=== PATIENT | female | born 2005 ===

== ENCOUNTER 2025-11-13 18:22 | Inpatient (IN) | payer MEDICAID, OTHER ==
[~2025-11-13] VITALS: Ht 162.6 cm; Wt 49.7 kg
[2025-11-13 18:40] VITALS: PULSE 117; RESP 16; O2SAT 99
[2025-11-13] MEDS: SODIUM CHLORIDE 0.9% 1,000 ML IV ONE (18:48)
--- NOTE | 2025-11-13 19:15 | ED.PDOC ---
History of Present Illness HPI Comments 20-year-old female who came to ER for syncope. Patient was at home having dinner when she felt dizzy and she has a syncopal attack, hitting her head on the table as she fell down. Patient's states she had a syncopal episode 4 years ago. Patient currently complaining of headaches and body pains. States she recently had a miscarriage a week ago. No active bleeding at this time of care REVIEW OF SYSTEMS: General: No fever, no chills, or fatigue HEENT: No sore throat, no earache, no congestion, no neck pain. Cardiac: No chest pain. No palpitations. (+) syncope Lungs: No shortness of breath, no cough. GI: No nausea, no vomiting, no diarrhea, no constipation, no abdominal pain : No dysuria, frequency, or urgency. No hematuria. Musculoskeletal: No joint pain , no joint swelling, no extremity edema. Skin: No rash, no itching. Neuro: (+) headache, (+) dizziness, (+) fainting, no weakness EXAM: General: Awake, alert and oriented. No acute distress. Skin: Skin in warm, dry and intact. Appropriate color for ethnicity. HEENT: The head is normocephalic and atraumatic. Conjunctivae are clear without exudates or hemorrhage. Sclera is non-icteric. EOM are intact. No signs of nystagmus. Eyelids are normal in appearance without swelling or lesions. Oral mucosa is pink and moist Neck: The neck is supple with normal range of motion. No JVD. Cardiac: Heart rate and rhythm are normal. No murmurs, gallops, or rubs are auscultated. Respiratory: No signs of respiratory distress. Lung sounds are clear in all lobes bilaterally without rales, rhonchi, or wheezes. Abdominal: Abdomen is soft, non-tender without distention. Bowel sounds are present and normoactive in all four quadrants. Extremities: Upper and lower extremities are atraumatic in appearance without deformity or edema. Neurological: The patient is awake, alert and oriented to person, place, and time with normal speech. Speech is clear. There is no facial asymmetry. Psychiatric: Appropriate mood and affect. Good judgement and insight Chief Complaint: Syncope Time Seen by MD: 19:15 Reviewed Notes: Nurses Notes Allergies: Coded Allergies: No Known Drug Allergy (Verified Allergy, Unknown, 11/14/25) Home Meds No Active Prescriptions or Reported Meds Information Source: Patient Mode of Arrival: EMS Past Medical History PAST MEDICAL HISTORY: Denies Surgical History: Denies all surgeries BLOW TORCH OPERATOR History: Denies all BLOW TORCH OPERATOR Hx Family History Family History: Reviewed,noncontributory to illness Social History Smoker: Non-Smoker Alcohol: Denies ETOH Use Drugs: Denies Drug Use Lives In: Home Was a procedure done? Was a procedure done?: No Differential Dx Considerations may include: Differential diagnoses considered include but are not limited to cardiac structural disease, arrhythmia, acute coronary syndrome, orthostasis, pulmonary embolism, dissection, seizure, basilar stroke, other. X-Ray, Labs, Meds, VS Vital Signs Date Time Temp Pulse Resp B/P (MAP) Pulse Ox O2 Delivery O2 Flow Rate FiO2 11/13/25 21:30 103 16 92/54 (67) 98 11/13/25 19:30 95 19 96 Room Air* 0 21 11/13/25 19:30 95 19 90/57 (68) 96 11/13/25 19:10 104 16 88/54 (65) 98 11/13/25 18:49 111 11/13/25 18:40 117 16 89/57 (68) 99 11/13/25 18:40 117 16 99 Room Air* 0 21 11/13/25 18:34 97.8 116 18 84/54 96 97.8 Lab Test 11/13/25 22:08 11/13/25 19:49 11/13/25 18:46 Range/Units Urine Color Colorless Yellow Urine Clarity Turbid H Clear Urine pH 6.5 5.0-9.0 Urine Specific [place] 1.012 1.001-1.035 Urine Protein Negative Negative Urine Ketones Trace Negative Urine Blood 2+ H Negative /uL Urine Nitrite Negative Negative Urine Bilirubin Negative Negative Urine Urobilinogen Normal Negative mg/dL Urine Leukocyte Esterase 3+ Negative /uL Urine RBC 31 0 - 4 /hpf Urine WBC Clumps Present None Seen /hpf Urine Microscopic WBC 170 H 0-5 /HPF Urine Squamous Epithelial Cells Mod <5 /hpf Urine Bacteria Few H None Seen /hpf Urine Hyaline Casts Few 0 - 2 /lpf Urine Mucus Few None Seen Urine Glucose Normal Normal mg/dL Urine Test See comment A Negative Troponin I High Sensitivity < 3 L < 3 L </=34 ng/L White Blood Count 9.7 4.4-10.8 10^3/uL Red Blood Count 4.53 4.0-5.20 10^6/uL Hemoglobin 11.4 L 12.2-16.2 g/dL Hematocrit 34.8 L 36.0-46.0 % Mean Corpuscular Volume 76.8 L 80.0-100.0 fL Mean Corpuscular Hemoglobin 25.2 L 28.0-32.0 pg Mean Corpuscular Hemoglobin Concent 32.8 32.0-36.0 g/dL Red Cell Distribution Width 18.4 H 11.8-14.3 % Platelet Count 381 140-450 10^3/uL Mean Platelet Volume 8.7 6.9-10.8 fL Neutrophils (%) (Auto) 74.9 37.0-80.0 % Lymphocytes (%) (Auto) 14.2 10.0-50.0 % Monocytes (%) (Auto) 8.1 0.0-12.0 % Eosinophils (%) (Auto) 2.3 0.0-7.0 % Basophils (%) (Auto) 0.5 0.0-2.0 % Neutrophils # (Auto) 7.3 1.6-8.6 10 ^3/uL Lymphocytes # (Auto) 1.4 0.4-5.4 10 ^3/uL Monocytes # (Auto) 0.8 0-1.3 10 ^3/uL Eosinophils # (Auto) 0.2 0-0.8 10 ^3/uL Basophils # (Auto) 0 0-0.2 10 ^3/uL Nucleated Red Blood Cells 0.0 % Sodium Level 141 136-145 mmol/L Potassium Level 3.1 L 3.5-5.1 mmol/L Chloride Level 104 98-107 mmol/L Carbon Dioxide Level 23 20-31 mmol/L Anion Gap 14 5-15 Blood Urea Nitrogen 5 L 9-23 mg/dL Creatinine 0.81 0.550-1.02 mg/dL Glomerular Filtration Rate Calc 106 >90 mL/min BUN/Creatinine Ratio 6.2 L 10.0-20.0 Serum Glucose 91 74-106 mg/dL Calcium Level 9.3 8.7-10.4 mg/dL B-Type Natriuretic Peptide 6.87 0-100 pg/mL Time of 1ST Reevaluation: 19:10 Reevaluation 1ST: Unchanged Patient Education/Counseling: Need For Follow Up Family Education/Counseling: No Family Present SEPSIS Sepsis Screen Date sepsis recognized/suspect: Nov 13, 2025 Time Sepsis recognized/suspect: 1829 Recent Procedure: No On Antibiotic Therapy: No Respiratory Rate >20: No Heart Rate >90: No Temp<36 C (96.8 F) or >38.3 C: No SBP <90 or MAP <65 mmHG: No New Acute Mental Status Change: No Is the patient on CPAP, BIPAP,: No Physician Orders Electrocardigram (11/13/25 18:38) Elevator Operator Freight (11/13/25 ) Orthostatic Vital Signs (11/13/25 ) Saline Lock (11/13/25 18:38) Fall Precautions Initiated (11/13/25 18:38) Electrocardigram (11/13/25 19:38) Electrocardigram (11/13/25 21:38) Ambulate (11/13/25 18:59) Vital Signs Date Time Temp Pulse Resp B/P (MAP) Pulse Ox O2 Delivery O2 Flow Rate FiO2 11/13/25 21:30 103 16 92/54 (67) 98 11/13/25 19:30 95 19 96 Room Air* 0 21 11/13/25 19:30 95 19 90/57 (68) 96 11/13/25 19:10 104 16 88/54 (65) 98 11/13/25 18:49 111 11/13/25 18:40 117 16 89/57 (68) 99 11/13/25 18:40 117 16 99 Room Air* 0 21 11/13/25 18:34 97.8 116 18 84/54 96 97.8 Laboratory Tests Test 11/13/25 18:46 White Blood Count 9.7 10^3/uL (4.4-10.8) Departure 1 Departure Time of Disposition: 21:20 Impression: Primary Impression: Syncope Additional Impressions: Hypotension Tachycardia Disposition: ADMITTED INPATIENT Condition: Stable e-Prescriptions No Active Prescriptions or Reported Meds Comments 20-year-old female with syncopal episode. The patient remains persistently tachycardic with hypotension after treatment in the ED. Additional IV fluids ordered. Potassium ordered. Admit dispo Critical Care Note Critical Care Time?: No Stability Stability form required: No Heart Score Heart Score: Heart Score Response (Comments) Value History N/A 0 EKG N/A 0 Age N/A 0 Risk Factors N/A 0 Troponin N/A 0 Total 0 I personally scribed for DONNA ORDOÑEZ MD ([email or web address]) on 11/13/25 at 19:15. Electronically submitted by Korey Perkins ([facility]). DONNA ORDOÑEZ MD Nov 13, 2025 19:15
[2025-11-13 19:20] LABS: Hematocrit 34.8 % (36.0-46.0); Hemoglobin 11.4 g/dL (12.2-16.2); Mean Corpuscular Hemoglobin 25.2 pg (28.0-32.0); Mean Corpuscular Volume 76.8 fL (80.0-100.0); Nucleated Red Blood Cells % 0.0 %
[2025-11-13 19:23] LABS: Chloride 104 mmol/L (98-107); Sodium 141 mmol/L (136-145)
[2025-11-13 19:24] LABS: Anion Gap 14 (5-15); Calcium 9.3 mg/dL (8.7-10.4); Carbon Dioxide 23 mmol/L (20-31)
[2025-11-13 19:26] LABS: Potassium 3.1 mmol/L (3.5-5.1)
[2025-11-13 19:29] LABS: BUN/Creatinine Ratio 6.2 (10.0-20.0); Glucose 91 mg/dL (74-106)
[2025-11-13 19:30] VITALS: PULSE 95; RESP 19; O2SAT 96
[2025-11-13 19:32] LABS: Blood Urea Nitrogen 5 mg/dL (9-23)
[2025-11-13 22:35] LABS: Urine Protein, UAD Negative (Negative); Urine WBC Clumps PRESENT /hpf (None Seen)
--- NOTE | 2025-11-13 22:44 | DVHHP2 ---
History of Present Illness Reason for Visit: Syncope History of Present Illness The patient is a 20-year-old female who denies past medical history presented to [facility] ED for evaluation of syncopal episode. Patient reports that she had 1 weeks ago and bled heavily for about 1 week, awaiting for appointment on November 19, 2025. Mother reports that patient was at home having dinner when she felt dizzy, had syncopal attack, hitting her head on the table as she fell down. Patient currently complaining of headaches and body pains. Patient was seen and evaluated in the ED, laboratory data shows WBC 9.7, hemoglobin 11.4, hematocrit 34.8, platelets 381, sodium 141, potassium 3.1, BUN 5, creatinine 0.81, GFR 106, glucose 91, calcium 9.3, BNP 6.57, troponin < 3, blood pressure 93/58, heart rate 117 trending down to 92, temperature 97.8 F, O2 saturation 99% on room air. Please see medication orders section in the computer. On my assessment, mother at bedside, patient denied chest pain, no dizziness, diaphoresis, shortness of breaths, no abdominal pain, diarrhea, na usea, vomiting, fever, no chills. Patient was admitted for further evaluation and medical management. Past Medical History Denies past medical history Past Surgical History Denies all surgeries Family History Reviewed, noncontributory to the management of this case. Past Social History The patient lives at home, denies smoking, alcohol or illicit drugs abuse. Review of Systems Constitutional: Yes: Weakness; No: Fever, Chills, Sweats, Malaise, Other Eyes: No: Pain, Vision change, Conjunctivae inflammation, Eyelid inflammation, Other, Redness ENT: No: Ear pain, Ear discharge, Nose pain, Nose discharge, Nose congestion, Mouth pain, Mouth swelling, Throat pain, Throat swelling, Other Respiratory: No: Cough, Dry, Shortness of breath, SOB with excertion, Wheezing, Hemoptysis, Pleuritic Pain, Sputum, Wheezing, Other Cardiovascular: No: Chest Pain, Palpitations, Orthopnea, Paroxysmal Noc. Dyspnea, Edema, Lt Headedness, Other Gastrointestinal: No: Nausea, Vomiting, Abdominal Pain, Diarrhea, Constipation, Melena, Hematochezia, Other Genitourinary: No Dysuria, No Frequency, No Incontinence, No Hematuria, No Retention, No Other Musculoskeletal: No: other, neck pain, shoulder pain, arm pain, back pain, hand pain, leg pain, foot pain Skin: No: Rash, Lesions, Jaundice, Bruising, Other Neurological: Other (Dizziness); No: Weakness, Numbness, Incoordination, Change in speech, Confusion, Seizures Allergies: Coded Allergies: No Known Drug Allergy (Verified Allergy, Unknown, 11/14/25) Exam Vital Signs Vital Signs Date Time Temp Pulse Resp B/P (MAP) Pulse Ox O2 Delivery O2 Flow Rate FiO2 11/13/25 18:40 117 16 89/57 (68) 99 11/13/25 18:40 Room Air* 0 21 11/13/25 18:34 97.8 97.8 General Appearance: Alert, Oriented X3, Cooperative, No acute distress HEENT: Atraumatic, PERRLA, EOMI, Mucous membr. moist/pink Respiratory: Clear to auscultation, Normal air movement Cardiovascular: Regular rate, Normal S1, Normal S2, No murmurs Abdominal: Normal bowel sounds, Soft, No tenderness, No hepatospenomegaly, No masses Extremities: No clubbing, No cyanosis, No edema, Normal pulses, No tenderne ss/swelling Skin: No rashes, No breakdown, No significant lesion Neuro: Normal speech, Normal tone, Sensation intact, Cranial nerves 3-12 NL, Reflexes 2+, Other (Generalized weakness) Psych/Mental Status: Mental status NL, Mood NL Labs/Xrays Labs Test 11/13/25 22:08 11/13/25 19:49 11/13/25 18:46 Range/Units Urine Color Colorless Yellow Urine Clarity Turbid H Clear Urine pH 6.5 5.0-9.0 Urine Specific [place] 1.012 1.001-1.035 Urine Protein Negative Negative Urine Ketones Trace Negative Urine Blood 2+ H Negative /uL Urine Nitrite Negative Negative Urine Bilirubin Negative Negative Urine Urobilinogen Normal Negative mg/dL Urine Leukocyte Esterase 3+ Negative /uL Urine RBC 31 0 - 4 /hpf Urine WBC Clumps Present None Seen /hpf Urine Microscopic WBC 170 H 0-5 /HPF Urine Squamous Epithelial Cells Mod <5 /hpf Urine Bacteria Few H None Seen /hpf Urine Hyaline Casts Few 0 - 2 /lpf Urine Mucus Few None Seen Urine Glucose Normal Normal mg/dL Troponin I High Sensitivity < 3 L </=34 ng/L White Blood Count 9.7 4.4-10.8 10^3/uL Red Blood Count 4.53 4.0-5.20 10^6/uL Hemoglobin 11.4 L 12.2-16.2 g/dL Hematocrit 34.8 L 36.0-46.0 % Mean Corpuscular Volume 76.8 L 80.0-100.0 fL Mean Corpuscular Hemoglobin 25.2 L 28.0-32.0 pg Mean Corpuscular Hemoglobin Concent 32.8 32.0-36.0 g/dL Red Cell Distribution Width 18.4 H 11.8-14.3 % Platelet Count 381 140-450 10^3/uL Mean Platelet Volume 8.7 6.9-10.8 fL Neutrophils (%) (Auto) 74.9 37.0-80.0 % Lymphocytes (%) (Auto) 14.2 10.0-50.0 % Monocytes (%) (Auto) 8.1 0.0-12.0 % Eosinophils (%) (Auto) 2.3 0.0-7.0 % Basophils (%) (Auto) 0.5 0.0-2.0 % Neutrophils # (Auto) 7.3 1.6-8.6 10 ^3/uL Lymphocytes # (Auto) 1.4 0.4-5.4 10 ^3/uL Monocytes # (Auto) 0.8 0-1.3 10 ^3/uL Eosinophils # (Auto) 0.2 0-0.8 10 ^3/uL Basophils # (Auto) 0 0-0.2 10 ^3/uL Nucleated Red Blood Cells 0.0 % Sodium Level 141 136-145 mmol/L Potassium Level 3.1 L 3.5-5.1 mmol/L Chloride Level 104 98-107 mmol/L Carbon Dioxide Level 23 20-31 mmol/L Anion Gap 14 5-15 Blood Urea Nitrogen 5 L 9-23 mg/dL Creatinine 0.81 0.550-1.02 mg/dL Glomerular Filtration Rate Calc 106 >90 mL/min BUN/Creatinine Ratio 6.2 L 10.0-20.0 Serum Glucose 91 74-106 mg/dL Calcium Level 9.3 8.7-10.4 mg/dL B-Type Natriuretic Peptide 6.87 0-100 pg/mL SEPSIS Sepsis Screen Date sepsis recognized/suspect: Nov 13, 2025 Time Sepsis recognized/suspect: 1839 Recent Procedure: No On Antibiotic Therapy: No Respiratory Rate >20: No Heart Rate >90: No Temp<36 C (96.8 F) or >38.3 C: No SBP <90 or MAP <65 mmHG: No New Acute Mental Status Change: No Is the patient on CPAP, BIPAP,: No Physician Orders Electrocardigram (11/13/25 18:38) Mold Maintenance Technician (11/13/25 ) Orthostatic Vital Signs (11/13/25 ) Saline Lock (11/13/25 18:38) Fall Precautions Initiated (11/13/25 18:38) Electrocardigram (11/13/25 19:38) Electrocardigram (11/13/25 21:38) Ambulate (11/13/25 18:59) Test, Urine (11/13/25 21:15) Potassium Effervesent Tab (Klor-Con/Ef) (11/13/25 21:15) D5w/ Sod Chl 0.9%/Kcl 20meq (11/13/25 21:15) Admit (11/13/25 22:40) Allergies (11/13/25 22:40) Code Status (11/13/25 22:40) Sodium Chloride Lock (Saline Lock Ns) (11/14/25 06:00) Vital Signs Date Time Temp Pulse Resp B/P (MAP) Pulse Ox O2 Delivery O2 Flow Rate FiO2 11/13/25 18:40 117 16 89/57 (68) 99 11/13/25 18:40 117 16 99 Room Air* 0 21 11/13/25 18:34 97.8 116 18 84/54 96 97.8 Laboratory Tests Test 11/13/25 18:46 White Blood Count 9.7 10^3/uL (4.4-10.8) Medications Medications Dose Ordered Sig/Tracy Route Start Time Stop Time Status Last Admin Dose Admin Sodium Chloride 1,000 ml @ 1,000 mls/hr Q1H ONCE IV 11/13/25 18:45 11/13/25 19:44 DC 11/13/25 18:48 1,000 MLS/HR Assessment/Plan Assessment/Plan Syncope Hypotension Tachycardia Generalized weakness Plan 1. Admit to telemetry unit 2. Breathing treatment 3. Pain control management 4. Management of fluids and electrolytes 5. Consultation for hospitalist 6. Diagnostic tests chest x-ray 7. DVT prophylaxis-on SCDs 8. Repeat labs CBC, CMP in a.m. 9. Continue with current medical management 10. Treatment plan discussed with patient/mother and RN. Patient/mother verbalized understanding. Plan discussed with: Patient, Other (RN) My Orders Orders - ABDOUL ZENG DNP Procedure Category Date Status Time Admit ADMIT 11/13/25 Verified 22:40 Allergies ANKITA 11/13/25 Verified 22:40 Code Status CODE 11/13/25 Verified 22:40 Sodium Chloride Lock PHA 11/14/25 Verified (Saline Lock Ns) 06:00 Problem List: (1) Syncope (2) Hypotension (3) Tachycardia (4) Generalized weakness Date of Service: Nov 13, 2025 Billing Provider: ABDOUL ZENG DNP Common Visit Codes: [id number] INP/OBS CARE (HIGH) ABDOUL ZENG DNP Nov 13, 2025 22:44
[2025-11-13] MEDS ORDERED: MORPHINE SULFATE INJ 2 MG/ml SYRG IV PRN (22:45)
[2025-11-13] MEDS ORDERED: ACETAMINOPHEN 325 MG TAB PO PRN (22:45)
[2025-11-13] MEDS ORDERED: NITROGLYCERIN 0.4 MG SL TAB SL PRN (22:45)
[2025-11-13] MEDS ORDERED: DOCUSATE SOD 100 MG CAP PO PRN (22:45)
[2025-11-13] MEDS ORDERED: HYDROcodone-ACET 5/325MG TAB PO PRN (22:45)
[2025-11-14] VITALS (10 sets, daily range): BP systolic 92–112; BP diastolic 51–75; PULSE 76–108; RESP 15–16; TEMP 97.1–99.6; O2SAT 97–99
[2025-11-14] MEDS: POTASSIUM EFFERVESENT TAB 25 MEQ PO ONE (02:09)
[2025-11-14] MEDS: D5W/ SOD CHL 0.9%/KCL 20MEQ 1,000 ML IV ONE (02:12)
[2025-11-14] MEDS: SODIUM CHLOR 0.9% PF (SALINE LOCK) 10ML VIAL/SYR IV SCH (06:00)
[2025-11-14 06:35] LABS: Hemoglobin 10.5 g/dL (12.2-16.2); Mean Corpuscular Hemoglobin 25.1 pg (28.0-32.0); Nucleated Red Blood Cells % 0.1 %
[2025-11-14 06:39] LABS: Hematocrit 32.1 % (36.0-46.0); Mean Corpuscular Volume 76.9 fL (80.0-100.0)
[2025-11-14 06:57] LABS: Alanine Aminotransferase 10 U/L (7-40); Albumin 4.2 g/dL (3.2-4.8); Alkaline Phosphatase 51 U/L (46-116); Anion Gap 9 (5-15); BUN/Creatinine Ratio 16.0 (10.0-20.0); Calcium 8.9 mg/dL (8.7-10.4); Carbon Dioxide 25 mmol/L (20-31); Chloride 105 mmol/L (98-107); Glucose 91 mg/dL (74-106); Potassium 4.2 mmol/L (3.5-5.1); Sodium 139 mmol/L (136-145); Total Protein 6.7 g/dL (5.7-8.2)
[2025-11-14 07:06] LABS: Bilirubin, Total 0.3 mg/dL (0.2-1.0)
[2025-11-14 07:07] LABS: Blood Urea Nitrogen 8 mg/dL (9-23)
[2025-11-14] MEDS: ONDANSETRON HCL 4 MG/2 ML VIAL IV PRN (09:56)
--- NOTE | 2025-11-14 15:23 | DVHPN2 ---
Subjective Patient denies any symptoms at this time Reviewed: Care Plan, H&P, Labs, Medications Changes from previous H/P or p: No Changes General: Per HPI Eyes: No Pain, No Vision change, No Conjunctivae inflammation, No Eyelid inflammation, No Other, No Redness ENT: No Ear pain, No Ear discharge, No Nose pain, No Nose discharge, No Nose congestion, No Mouth pain, No Mouth swelling, No Throat pain, No Throat swelling, No Other Cardiovascular: No Chest Pain, No Palpitations, No Orthopnea, No Paroxysmal Noc. Dyspnea, No Edema, No Lt Headedness, No Other Respiratory: No Cough, No Dry, No Shortness of breath, No SOB with excertion, No Wheezing, No Hemoptysis, No Pleuritic Pain, No Sputum, No Other Gastrointestinal: No Nausea, No Vomiting, No Abdominal Pain, No Diarrhea, No Constipation, No Melena, No Hematochezia, No Other Genitourinary: No Dysuria, No Frequency, No Incontinence, No Hematuria, No Retention, No Other Musculoskeletal: No other, No neck pain, No shoulder pain, No arm pain, No back pain, No hand pain, No leg pain, No foot pain Skin: No Rash, No Lesions, No Jaundice, No Bruising, No Other Objective Vitals Vital Signs Date Time Temp Pulse Resp B/P (MAP) Pulse Ox O2 Delivery O2 Flow Rate FiO2 11/14/25 13:16 98.1 81 16 103/61 (75) 98 98.1 93 107/63 (78) 91 100/71 (81) 11/14/25 07:45 Room Air* 0 21 Intake/Output Intake and Output 11/14/25 07:00 Intake Total 200 ml Balance 200 ml Intake Oral 200 ml # Voids 1 General Appearance: Alert, Oriented X3, Cooperative, No acute distress HEENT: Atraumatic, PERRLA Lungs: Clear to auscultation, Normal air movement Cardiovascular: Normal S1, Normal S2 Musculoskeletal: Normal sensory function, Normal motor function Skin: Dry, Intact Psych/Mental Status: Mood NL Medications Current Medications Medications Dose Ordered Sig/Trayc Route Start Time Stop Time Status Last Admin Dose Admin Sodium Chloride 10 ml Q8HR IV 11/14/25 06:00 11/14/25 14:30 10 ML Acetaminophen/ Hydrocodone Bitart 1 tab Q4HP PRN PO 11/13/25 22:45 Ondansetron HCl 4 mg Q4HP PRN IV 11/13/25 22:45 11/14/25 09:56 4 MG Docusate Sodium 100 mg BIDPRN PRN PO 11/13/25 22:45 Acetaminophen 650 mg Q6HP PRN PO 11/13/25 22:45 Nitroglycerin 0.4 mg Q5MINP PRN SL 11/13/25 22:45 Morphine Sulfate 2 mg Q30M PRN IV 11/13/25 22:45 Laboratory Results Laboratory Tests 11/14/25 04:44 Chemistry Test 11/13/25 18:46 11/14/25 04:44 Calcium Level 9.3 mg/dL (8.7-10.4) 8.9 mg/dL (8.7-10.4) Albumin 4.2 g/dL (3.2-4.8) Total Protein 6.7 g/dL (5.7-8.2) Cardiac Markers Test 11/13/25 18:46 B-Type Natriuretic Peptide 6.87 pg/mL (0-100) LFT Test 11/14/25 04:44 Alanine Aminotransferase (ALT) 10 U/L (7-40) Alkaline Phosphatase 51 U/L (46-116) Aspartate Amino Transferase (AST) 15 U/L (13-40) Total Bilirubin 0.3 mg/dL (0.2-1.0) Urinalysis Test 11/13/25 22:08 Urine Color Colorless (Yellow) Urine Clarity Turbid (Clear) H Urine pH 6.5 (5.0-9.0) Urine Specific [place] 1.012 (1.001-1.035) Urine Protein Negative (Negative) Urine Ketones Trace (Negative) Urine Blood 2+ /uL (Negative) H Urine Nitrite Negative (Negative) Urine Bilirubin Negative (Negative) Urine Urobilinogen Normal mg/dL (Negative) Urine Leukocyte Esterase 3+ /uL (Negative) Urine RBC 31 /hpf (0 - 4) Urine WBC Clumps Present /hpf (None Seen) Urine Microscopic WBC 170 /HPF (0-5) H Urine Squamous Epithelial Cells Mod /hpf (<5) Urine Bacteria Few /hpf (None Seen) H Urine Hyaline Casts Few /lpf (0 - 2) Urine Mucus Few (None Seen) Urine Glucose Normal mg/dL (Normal) Urine Test See comment (Negative) A Labs and/or images reviewed: Labs reviewed by me, Image(s) reviewed by me Assessment/Plan Assessment/Plan Impression: -syncope -rule out incomplete spontaneous -anemia -rule out seizure activity Plan: -neurology consultation -start oral antibiotic therapy with Augmentin -check beta hCG -Ob ultrasound Total time spent with patient discussing and formulating plan of care: 35 minutes. This medical document was created using an electronic medical record system with [employer] dictation system. Although this document has been carefully reviewed, there may still be some phonetic and typographical errors. These areas are purely typographical due to imperfections of the software programs, and do not reflect any compromise in the patient's medical care. Plan discussed with: Patient, Other (Mother, RN) My Orders Orders - JEFERSON MUÑOZ NP Procedure Category Date Status Time Ob Ultrasound Comp US 11/14/25 Verified Less 14wks 15:19 Amoxicillin/Clavulanate PHA 11/14/25 Verified Tablet (Augmenti 22:00 Date of Service: Nov 14, 2025 Billing Provider: JEFERSON MUÑOZ NP Common Visit Codes: [id number] INP/OBS CARE(HIGH) JEFERSON MUÑOZ NP Nov 14, 2025 15:23
--- NOTE | 2025-11-14 18:23 | BSKYNEURO ---
[facility] Note # Demographics Consult Type: General Neurology Patient Location: Inpatient First Name: Zuri Last Name: Lulu Date of : 2005 Age: 20 Gender: Female Facility: [facility] Time of Initial Page (): 11/14/2025 17:12 First Contact with Site (): 11/14/2025 17:12 # HPI History: 20 y/o F who presented with syncope. Talking to mother. She had 5-10 seconds of jekring. Had episode like this before. Had spontaneous miscarriage. She is confused afterwards for a couple of hours # Scores Time of exam and NIHSS (): 11/14/2025 18:22 Level of Consciousness 1a: [0] = Alert; keenly responsive LOC Questions 1b: [0] = Answers both questions correctly LOC Commands 1c: [0] = Performs both tasks correctly Best Gaze 2: [0] = Normal Visual 3: [0] = No visual loss Facial Palsy 4: [0] = Normal symmetrical movements Motor Arm Left 5a: [0] = No drift Motor Arm Right 5b: [0] = No drift Motor Leg Left 6a: [0] = No drift Motor Leg Right 6b: [0] = No drift Limb Ataxia 7: [0] = Absent Sensory 8: [0] = Normal Best Language 9: [0] = No aphasia Dysarthria 10: [0] = Normal Extinction and Inattention 11: [0] = No abnormality NIHSS Total: 0 # Assessment Impression: - Other Convulsive syncope vs seizure. Duration is short but the post ictal period is concerning. Would start seizure meds and complete workup. # Plan Thrombolytic/Intervention: NOT IV Thrombolysis or IA Intervention candidate Thrombolytic/Intraarterial Exclusion: - IV thrombolytic and IA intervention considered but not recommended as this patient's symptoms are not clinically consistent with an assumed diagnosis of stroke Imaging: (urgency: routine): - MRI Brain with AND without contrast Diagnostic Test: - EEG Medication: -after MRI/EEG, would start keppra 500 mg BID Other: - If patient has any neurological deterioration please call me back immediately - I have discussed my recommendations with the referring provider Disposition: continue admission # Logistics Attestation of consult completion: The patient is located at: [facility]. Facility staff participated in the visit. I performed this telemedicine visit from my offsite office utilizing interactive 2 way audio and visual telecommunication technology at the request of the onsite inpatient provider. Consent: Verbal consent was obtained from the patient and/or family for this encounter. Total time spent in telemedicine encounter: I spent 20 minutes reviewing clinical data and/or imaging, obtaining history, examining the patient, communicating with the onsite care team, and in preparation of this report. # Demographics First Name: Zuri Last Name: Lawson Facility: [facility] Yes JAMAL MILES MD Nov 14, 2025 18:23
--- NOTE | 2025-11-14 19:40 | DVH ---
INDICATION: Spontaneous TECHNIQUE: Multiple real-time grayscale transabdominal sonographic images along with color and duplex Doppler of the uterus and ovaries were obtained. COMPARISON: None FINDINGS: The uterus measures 7.4 x 4.5 x 5.3 cm cm. The endometrial stripe measures 5.4 mm. The right ovary measures 2.36 x 2.2 x 3.2 cm. Right ovarian volume is 9 mL. There is a 1.4 x 1.5 x 1 cm anechoic lesion in the right ovary. The left ovary measures 4 x 2.3 x 3.1 cm. Volume of the left ovary is 15.3 mL there is an anechoic nodule in the left ovary measuring 1.9 x 1.1 x 1.4 cm. Subsequent color and duplex Doppler interrogation of the ovaries demonstrated symmetric vascular flow to both ovaries, though this does not exclude the possibility of torsion due to the dual blood supply. IMPRESSION: 1. Grossly unremarkable pelvic ultrasound. 2. No IUP present time. No findings to suggest retained products of conception. 3. An anechoic nodule in the right and left ovaries.
[2025-11-15] VITALS (9 sets, daily range): BP systolic 90–116; BP diastolic 55–78; PULSE 67–96; RESP 12–20; TEMP 97.8–98.3; O2SAT 96–99
--- NOTE | 2025-11-15 10:32 | DVHPN2 ---
Subjective Patient denies any symptoms at this time Reviewed: Care Plan, H&P, Labs, Medications Changes from previous H/P or p: No Changes General: Per HPI Eyes: No Pain, No Vision change, No Conjunctivae inflammation, No Eyelid inflammation, No Other, No Redness ENT: No Ear pain, No Ear discharge, No Nose pain, No Nose discharge, No Nose congestion, No Mouth pain, No Mouth swelling, No Throat pain, No Throat swelling, No Other Cardiovascular: No Chest Pain, No Palpitations, No Orthopnea, No Paroxysmal Noc. Dyspnea, No Edema, No Lt Headedness, No Other Respiratory: No Cough, No Dry, No Shortness of breath, No SOB with excertion, No Wheezing, No Hemoptysis, No Pleuritic Pain, No Sputum, No Other Gastrointestinal: No Nausea, No Vomiting, No Abdominal Pain, No Diarrhea, No Constipation, No Melena, No Hematochezia, No Other Genitourinary: No Dysuria, No Frequency, No Incontinence, No Hematuria, No Retention, No Other Musculoskeletal: No other, No neck pain, No shoulder pain, No arm pain, No back pain, No hand pain, No leg pain, No foot pain Skin: No Rash, No Lesions, No Jaundice, No Bruising, No Other Objective Vitals Vital Signs Date Time Temp Pulse Resp B/P (MAP) Pulse Ox O2 Delivery O2 Flow Rate FiO2 11/15/25 08:37 97.8 85 20 102/60 (74) 96 97.8 11/15/25 07:45 Room Air* 0 21 Intake/Output Intake and Output 11/15/25 07:00 Intake Total 1000 ml Balance 1000 ml Intake Oral 1000 ml # Voids 6 General Appearance: Alert, Oriented X3, Cooperative, No acute distress HEENT: Atraumatic, PERRLA Lungs: Clear to auscultation, Normal air movement Cardiovascular: Normal S1, Normal S2 Musculoskeletal: Normal sensory function, Normal motor function Skin: Dry, Intact Psych/Mental Status: Mood NL Medications Current Medications Medications Dose Ordered Sig/Tracy Route Start Time Stop Time Status Last Admin Dose Admin Sodium Chloride 10 ml Q8HR IV 11/14/25 06:00 11/15/25 05:06 10 ML Acetaminophen/ Hydrocodone Bitart 1 tab Q4HP PRN PO 11/13/25 22:45 Ondansetron HCl 4 mg Q4HP PRN IV 11/13/25 22:45 11/14/25 09:56 4 MG Docusate Sodium 100 mg BIDPRN PRN PO 11/13/25 22:45 Acetaminophen 650 mg Q6HP PRN PO 11/13/25 22:45 Nitroglycerin 0.4 mg Q5MINP PRN SL 11/13/25 22:45 Morphine Sulfate 2 mg Q30M PRN IV 11/13/25 22:45 Amoxicillin/ Clavulanate Potassium 500 mg Q8HR PO 11/14/25 22:00 11/15/25 05:07 500 MG Laboratory Results Laboratory Tests 11/14/25 04:44 Urinalysis Test 11/13/25 22:08 Urine Color Colorless (Yellow) Urine Clarity Turbid (Clear) H Urine pH 6.5 (5.0-9.0) Urine Specific [place] 1.012 (1.001-1.035) Urine Protein Negative (Negative) Urine Ketones Trace (Negative) Urine Blood 2+ /uL (Negative) H Urine Nitrite Negative (Negative) Urine Bilirubin Negative (Negative) Urine Urobilinogen Normal mg/dL (Negative) Urine Leukocyte Esterase 3+ /uL (Negative) Urine RBC 31 /hpf (0 - 4) Urine WBC Clumps Present /hpf (None Seen) Urine Microscopic WBC 170 /HPF (0-5) H Urine Squamous Epithelial Cells Mod /hpf (<5) Urine Bacteria Few /hpf (None Seen) H Urine Hyaline Casts Few /lpf (0 - 2) Urine Mucus Few (None Seen) Urine Glucose Normal mg/dL (Normal) Urine Test See comment (Negative) A Labs and/or images reviewed: Labs reviewed by me, Image(s) reviewed by me Assessment/Plan Assessment/Plan Impression: -syncope -rule out incomplete spontaneous -anemia -rule out seizure activity Plan: -neurology consultation : Discussed case with Dr. Allison. Orders placed for MRI of the brain with and without contrast as well as EEG. -start oral antibiotic therapy with Augmentin -as recommended by neurologist, start Keppra 500 mg p.o. b.i.d. after EEG -Ob ultrasound: Reviewed. No signs of remnants of fetus Total time spent with patient discussing and formulating plan of care: 35 minutes. This medical document was created using an electronic medical record system with [employer] dictation system. Although this document has been carefully reviewed, there may still be some phonetic and typographical errors. These areas are purely typographical due to imperfections of the software programs, and do not reflect any compromise in the patient's medical care. Plan discussed with: Patient, Other (RN) My Orders Orders - JEFERSON MUÑOZ NP Procedure Category Date Status Time Ob Ultrasound Comp US 11/14/25 Resulted Less 14wks 15:19 Amoxicillin/Clavulanate PHA 11/14/25 In Process Tablet (Augmenti 22:00 Positron Neuro Consult CONS-TELE 11/14/25 Logged Eeg Awake/Sleep/Act EEG 11/15/25 Transmitted 09:59 Brain Head Wo Contrast MRI 11/15/25 Logged 10:00 Date of Service: Nov 15, 2025 Billing Provider: JEFERSON MUÑOZ NP Common Visit Codes: [id number] INP/OBS CARE(HIGH) JEFERSON MUÑOZ NP Nov 15, 2025 10:32
[2025-11-15] MEDS: LORazepam 2MG/ML-1ML VIAL IV ONE (12:30)
[2025-11-15] MEDS: GADOTERATE MEG 7.5 MMOL/15ml INJ (0.5MMOL/ml) IV ONE (14:44)
--- NOTE | 2025-11-15 16:35 | DVH ---
CLINICAL HISTORY: R/O MASS TECHNIQUE: MRI of the brain was performed with and without gadolinium. COMPARISON: None FINDINGS: There is no abnormal area of restricted diffusion. The supra and infratentorial parenchyma is within normal limits. The intracranial flow voids are preserved. No abnormal enhancement. The intraorbital structures are unremarkable. The paranasal sinuses, mastoid air cells, and calvarium are unremarkable. IMPRESSION: Unremarkable examination
[2025-11-16 01:00] VITALS: BP 112/76; PULSE 79; RESP 16; TEMP 97.6; O2SAT 97
[2025-11-16 05:00] VITALS: BP 108/63; PULSE 80; RESP 18; TEMP 98.1; O2SAT 97
[2025-11-16 07:45] VITALS: PULSE 64; RESP 16; O2SAT 98
[2025-11-16 08:00] VITALS: PULSE 61
[2025-11-16 08:51] VITALS: BP 114/70; PULSE 64; RESP 16; TEMP 97.5; O2SAT 98
[2025-11-16] MEDS ORDERED: LEVE500T40 PO (10:34)
--- NOTE | 2025-11-16 10:38 | DVHDS2 ---
Discharge Summary Date of Admission Nov 13, 2025 at 22:40 Date of Discharge: Nov 16, 2025 Admitting Diagnosis Hypotension Labs/Diagnostic Data: Laboratory Results Test 11/14/25 04:44 11/13/25 22:08 11/13/25 19:49 11/13/25 18:46 White Blood Count 6.0 10^3/uL (4.4-10.8) Red Blood Count 4.18 10^6/uL (4.0-5.20) Hemoglobin 10.5 g/dL (12.2-16.2) Hematocrit 32.1 % (36.0-46.0) Mean Corpuscular Volume 76.9 fL (80.0-100.0) Mean Corpuscular Hemoglobin 25.1 pg (28.0-32.0) Mean Corpuscular Hemoglobin Concent 32.6 g/dL (32.0-36.0) Red Cell Distribution Width 18.4 % (11.8-14.3) Platelet Count 349 10^3/uL (140-450) Mean Platelet Volume 9.0 fL (6.9-10.8) Neutrophils (%) (Auto) 63.7 % (37.0-80.0) Lymphocytes (%) (Auto) 18.4 % (10.0-50.0) Monocytes (%) (Auto) 15.0 % (0.0-12.0) Eosinophils (%) (Auto) 2.4 % (0.0-7.0) Basophils (%) (Auto) 0.5 % (0.0-2.0) Neutrophils # (Auto) 3.8 10 ^3/uL (1.6-8.6) Lymphocytes # (Auto) 1.1 10 ^3/uL (0.4-5.4) Monocytes # (Auto) 0.9 10 ^3/uL (0-1.3) Eosinophils # (Auto) 0.1 10 ^3/uL (0-0.8) Basophils # (Auto) 0 10 ^3/uL (0-0.2) Nucleated Red Blood Cells 0.1 % Sodium Level 139 mmol/L (136-145) Potassium Level 4.2 mmol/L (3.5-5.1) Chloride Level 105 mmol/L (98-107) Carbon Dioxide Level 25 mmol/L (20-31) Anion Gap 9 (5-15) Blood Urea Nitrogen 8 mg/dL (9-23) Creatinine 0.50 mg/dL (0.550-1.02) Glomerular Filtration Rate Calc 137 mL/min (>90) BUN/Creatinine Ratio 16.0 (10.0-20.0) Serum Glucose 91 mg/dL (74-106) Calcium Level 8.9 mg/dL (8.7-10.4) Total Bilirubin 0.3 mg/dL (0.2-1.0) Aspartate Amino Transferase (AST) 15 U/L (13-40) Alanine Aminotransferase (ALT) 10 U/L (7-40) Alkaline Phosphatase 51 U/L (46-116) Total Protein 6.7 g/dL (5.7-8.2) Albumin 4.2 g/dL (3.2-4.8) Beta HCG, Quantitative 40.6 mIU/mL (1.5-4.2) Urine Color Colorless (Yellow) Urine Clarity Turbid (Clear) Urine pH 6.5 (5.0-9.0) Urine Specific [place] 1.012 (1.001-1.035) Urine Protein Negative (Negative) Urine Ketones Trace (Negative) Urine Blood 2+ /uL (Negative) Urine Nitrite Negative (Negative) Urine Bilirubin Negative (Negative) Urine Urobilinogen Normal mg/dL (Negative) Urine Leukocyte Esterase 3+ /uL (Negative) Urine RBC 31 /hpf (0 - 4) Urine WBC Clumps Present /hpf (None Seen) Urine Microscopic WBC 170 /HPF (0-5) Urine Squamous Epithelial Cells Mod /hpf (<5) Urine Bacteria Few /hpf (None Seen) Urine Hyaline Casts Few /lpf (0 - 2) Urine Mucus Few (None Seen) Urine Glucose Normal mg/dL (Normal) Urine Test See comment (Negative) Troponin I High Sensitivity < 3 ng/L (</=34) B-Type Natriuretic Peptide 6.87 pg/mL (0-100) Other Laboratory Tests 11/14/25 04:44 Brief Hx & Hospital Course: History of Present Illness The patient is a 20-year-old female who denies past medical history presented to [facility] ED for evaluation of syncopal episode. Patient reports that she had 1 weeks ago and bled heavily for about 1 week, awaiting for appointment on November 19, 2025. Mother reports that patient was at home having dinner when she felt dizzy, had syncopal attack, hitting her head on the table as she fell down. Patient currently complaining of headaches and body pains. Patient was seen and evaluated in the ED, laboratory data shows WBC 9.7, hemoglobin 11.4, hematocrit 34.8, platelets 381, sodium 141, potassium 3.1, BUN 5, creatinine 0.81, GFR 106, glucose 91, calcium 9.3, BNP 6.57, troponin < 3, blood pressure 93/58, heart rate 117 trending down to 92, temperature 97.8 F, O2 saturation 99% on room air. Please see medication orders section in the computer. On my assessment, mother at bedside, patient denied chest pain, no dizziness, diaphoresis, shortness of breaths, no abdominal pain, diarrhea, nausea, vomiting, fever, no chills. Patient was admitted for further evaluation and medical management. Course of hospitalization: Further discussion with the patient's mother reveals that the patient had questionable seizure-type activity and had a nonresponsive state for proximally 15 minutes. Neurology consultation was obtained. MRI of the brain was performed which was negative for any acute pathology. EEG was performed, pending reading. Patient has had no type of seizure activity while in the hospital. Given her recent spontaneous miscarriage, beta hCG was performed which was elevated followed by ultrasound of her pelvis which was negative for any remnants of incomplete spontaneous . Patient has been afebrile. She will be discharged home with Keppra 500 mg p.o. b.i.d. as recommended by neurologist. She is instructed to follow up with the discharge Clinic in one week and obtain a PCP on her own accord. The patient, and mother are agreeable with discharge plan. All questions answered. Physical examination General: Alert and Oriented x3. No acute distress. Well-nourished. Eyes: EOMI. Anicteric. HENT: Moist mucous membranes. Lungs: Clear to auscultation bilaterally. No accessory muscle use. Cardiovascular: Regular rate and rhythm. No murmur. No JVD. Abdomen: Soft, non-tender and non-distended. No palpable masses. Extremities: No edema. Non-tender. Skin: No rashes or lesions. Warm. Neurologic: No focal neurological deficits. CN II-XII grossly intact, but not individually tested. Psychiatric: Cooperative. Appropriate mood and affect. Total time spent with patient discussing and formulating plan of care: 35 minutes. This medical document was created using an electronic medical record system with [employer] dictation system. Although this document has been carefully reviewed, there may still be some phonetic and typographical errors. These areas are purely typographical due to imperfections of the software programs, and do not reflect any compromise in the patient's medical care. Condition at Discharge: Fair Final Diagnosis/Problems List Syncope Questionable new onset seizure activity -rule dout incomplete spontaneous -anemia Discharge Disposition: Home Discharge Instruct/Medications Diet: Regular Activity: No Restrictions, As Tolerated Follow Up/Referral: Discharge Clinic in one week Medications: Keppra 500 mg p.o. b.i.d. 36 Discharge Statement: "Patient was advised to return to the ER or call 911 if any headaches, dizziness, shortness of breath, chest pain, abdominal pain, bleeding, fevers, or worsening of medical condition. Patient was counseled about treatment plan, medications, possible side effects, patientverbalized understanding. All questions were answered to the best of my ability. This discharge took greater then 30 minutes in planning, reviewing documentation, counseling the patient, and discussing with other team members." ASSESSMENT ASSESSMENT Assessment Syncope Questionable new onset seizure activity Date of Service: Nov 16, 2025 Billing Provider: JEFERSON MUÑOZ NP Common Visit Codes: 21831-GZO/OBS DISCH DAY >30min JEFERSON MUÑOZ NP Nov 16, 2025 10:38
[2025-11-16 11:53] VITALS: BP 114/70; PULSE 64; RESP 16; TEMP 97.5; O2SAT 98
--- NOTE | 2025-11-18 08:02 | DVHEEG2 ---
Neurology EEG Procedural Note Procedural Note [place] EEG Note # Demographics Type of EEG Read: - Routine EEG - without video Patient Location: Inpatient First Name: ELIZABETH Anthony Last Name: RAS Date of : 2005 Age: 20 Gender: Female Facility: [facility] Time of Initial Page (): 11/18/2025 07:56 First Contact with Site ( Time): 11/18/2025 07:56 # EEG Interpretation Start Time of EEG Read (): 11/15/2025 14:04 Stop Time of EEG Read (): 11/15/2025 14:22 Duration: 0h 18m Technical Details: - The EEG electrodes were placed using the standard International 10-20 system of electrode placement. Video and an accessory EKG lead were used during the course of this study. - This study was recorded using the [employer] EEG software Indication: - abnormal movements # Description Photic Stimulation: NOT Performed Hyperventilation: NOT performed Phases Captured: - awake Symmetry: symmetric Posterior Dominant Rhythm: poorly defined Predominant Frequencies: - posterior dominant alpha (8-12 Hz) - continuous (>90%) Superimposed Frequencies: - beta (>15 Hz) - continuous (>90%) Amplitude: low Reactivity: yes Variability: yes Continuity: continuous EKG: NSR # Abnormalities Epileptiform Abnormalities: - NOT present Focal Slowing: no Seizure: - NOT present Artifact: T4 artifact and movement artifact # Impression Impression: normal # Clinical Correlation Clinical Correlation: A normal EEG does not exclude nor support the diagnosis of epilepsy. # Logistics Telemedicine: remote EEG review: EEG reviewed remotely # Demographics First Name: ELIZABETH Anthony Last Name: RAS Facility: [facility] SHELLY MANUEL MD Nov 18, 2025 08:02
== END 2025-11-16 12:29 | disposition home or self-care (01) | DRG 53 ==
LOC: EDBD 18:22 → ER 18:22 → OVERFLOW 22:40 → TELE-CENTR 22:44
PROVIDERS: ADMIT Nurse Practitioner Acute Care; ATTEND Nurse Practitioner Acute Care
DX: R56.9 Unspecified convulsions (principal); D64.9 Anemia, unspecified; I95.9 Hypotension, unspecified; Z87.59 Personal history of other complications of pregnancy, childbirth and the puerperium; Z79.899 Other long term (current) drug therapy
CPT/HCPCS: 36415; 70553; 76801; 80048; 80053; 81001; 81025; 83880; 84484; 84702; 85025; 95819; 96360; G0378; J2405